=== PATIENT | male | born 1940 | race Caucasian/White ===

== ENCOUNTER 2023-09-14 19:18 | Inpatient (IN) | payer MEDICARE ==
[~2023-09-14] VITALS: Ht 180.3 cm; Wt 75.4 kg
[2023-09-14 20:07] LABS: BASOPHILS # (AUTO) 0.1 K/UL (0.0-0.2); BASOPHILS % (AUTO) 0.7 % (0.0-2.0); EOSINOPHILS # (AUTO) 0.2 K/uL (0.0-0.7); EOSINOPHILS % (AUTO) 1.5 % (0.0-7.0); HEMATOCRIT 46.9 % (36.7-47.1); HEMOGLOBIN 15.2 g/dL (12.5-16.3); LYMPHOCYTES # (AUTO) 1.4 K/uL (0.8-4.8); LYMPHOCYTES % (AUTO) 12.8 % (20.5-51.5); MEAN CORPUSCULAR HEMOGLOBIN 29.3 uug (23.8-33.4); MEAN CORPUSCULAR HGB CONC 33 g/dL (32.5-36.3); MEAN CORPUSCULAR VOLUME 90.2 fL (73.0-96.2); MONOCYTES # (AUTO) 1.2 K/uL (0.1-1.30); NEUTROPHILS # (AUTO) 8.3 K/uL (1.8-8.9); PLATELET COUNT (AUTO) 231 K/uL (152-348); RED CELL DISTRIBUTION WIDTH 14.8 % (12.1-16.2); WHITE BLOOD COUNT (AUTO) 11.2 K/uL (3.6-10.2)
[2023-09-14 20:08] LABS: CALCIUM 8.8 mg/dL (8.5-10.1); CREATININE 1.2 mg/dL (0.6-1.3); POTASSIUM 3.6 mmol/L (3.5-5.1)
[2023-09-14] MEDS ORDERED: levoFLOXacin 750MG/D5W 150 ML IV ONE (20:10)
[2023-09-14 20:14] LABS: ALBUMIN 2.9 g/dL (3.4-5.0); BILIRUBIN,DIRECT 0.2 mg/dL (0.0-0.2); BILIRUBIN,TOTAL 0.9 mg/dL (0.2-1.0); TOTAL PROTEIN, SERUM 7.1 g/dL (6.4-8.2)
[2023-09-14] MEDS ORDERED: levoFLOXacin 750 MG/D5W 150 ML PIGGYBACK IV ONE (20:15)
[2023-09-14] MEDS ORDERED: ONDANSETRON 4 MG/2 ML VIAL ONE (20:24)
[2023-09-14] MEDS ORDERED: HYDROMORPHONE 1 MG/1 ML DISP.SYRIN ONE (20:24)
[2023-09-14] MEDS ORDERED: HYDROMORPHONE 1 MG/1 ML DISP.SYRIN IV ONE (20:30)
[2023-09-14] MEDS ORDERED: ONDANSETRON 4 MG/2 ML VIAL IV ONE (20:30)
[2023-09-14] MEDS ORDERED: SWABABLE VALVE TRANSFER SET EA MC ONE (20:54)
[2023-09-14] MEDS ORDERED: IOHEXOL 350 100 ML INFUS..BTL ONE (20:54)
[2023-09-14] MEDS ORDERED: IV NORMAL SALINE 250 ML IV ONE (20:54)
[2023-09-15 01:07] VITALS: BP 149/75; TEMP 97.8
[2023-09-15] MEDS ORDERED: ONDANSETRON 4 MG/2 ML VIAL IV PRN (01:30)
[2023-09-15] MEDS ORDERED: ACETAMINOPHEN 650 MG SUPP.RECT RC PRN (01:30)
[2023-09-15] MEDS: IV D5/ 0.9% NACL 1,000 ML IV PRN ×2 (02:24→19:59)
[2023-09-15] MEDS: MORPHINE SULFATE 4 MG/1 ML DISP.SYRIN IV PRN ×3 (04:47→22:09)
[2023-09-15] MEDS ORDERED: ENALAPRILAT DIHYDRATE 1.25 MG/1 ML VIAL IV PRN (06:45)
[2023-09-15 06:48] LABS: BASOPHILS # (AUTO) 0.1 K/UL (0.0-0.2); BASOPHILS % (AUTO) 0.7 % (0.0-2.0); EOSINOPHILS # (AUTO) 0.1 K/uL (0.0-0.7); EOSINOPHILS % (AUTO) 1.1 % (0.0-7.0); HEMATOCRIT 42.2 % (36.7-47.1); LYMPHOCYTES # (AUTO) 1.4 K/uL (0.8-4.8); LYMPHOCYTES % (AUTO) 13.3 % (20.5-51.5); MEAN CORPUSCULAR HEMOGLOBIN 30.5 uug (23.8-33.4); MEAN CORPUSCULAR HGB CONC 33 g/dL (32.5-36.3); MEAN CORPUSCULAR VOLUME 91.7 fL (73.0-96.2); MONOCYTES # (AUTO) 1.2 K/uL (0.1-1.30); MONOCYTES % (AUTO) 11.2 % (0.0-11.0); NEUTROPHILS # (AUTO) 7.9 K/uL (1.8-8.9); NEUTROPHILS % (AUTO) 73.7 % (38.5-71.5); PLATELET COUNT (AUTO) 80 K/uL (152-348); RED CELL DISTRIBUTION WIDTH 14.5 % (12.1-16.2); WHITE BLOOD COUNT (AUTO) 10.7 K/uL (3.6-10.2)
[2023-09-15 07:01] LABS: DIFFERENTIAL COMMENT 1
[2023-09-15 07:10] LABS: THYROID STIMULATING HORMONE 2.884 mIU/mL (0.358-3.740)
[2023-09-15 07:19] LABS: ALANINE AMINOTRANSFERASE 21 U/L (16-63); ALBUMIN 2.8 g/dL (3.4-5.0); ALKALINE PHOSPHATASE 91 U/L (50-136); ASPARTATE AMINOTRANSFERASE 18 U/L (15-37); CALCIUM 8.7 mg/dL (8.5-10.1); CARBON DIOXIDE 28 mmol/L (21-32); CHLORIDE 103 mmol/L (98-107); CHOLESTEROL 180 mg/dL (<200); GLUCOSE 120 mg/dL (74-106); HDL CHOLESTEROL 69 mg/dL (40-60); PHOSPHOROUS 3.5 mg/dL (2.5-4.9); POTASSIUM 4.2 mmol/L (3.5-5.1); SODIUM SERUM 139 mmol/L (136-145); TOTAL PROTEIN, SERUM 7.3 g/dL (6.4-8.2); TRIGLYCERIDES 56 MG/DL (30-150)
[2023-09-15] MEDS: PANTOPRAZOLE SODIUM 40 MG VIAL IV SCH (08:30)
[2023-09-15] MEDS: NEOMY/BACITRAC/POLYMI OINT 28.35 GM TUBE TOP SCH (08:32)
[2023-09-15 08:41] LABS: UREA NITROGEN, BLOOD 14 mg/dL (7-18)
[2023-09-15 11:33] VITALS: BP 141/74; TEMP 98.5; O2SAT 94
[2023-09-15 15:53] VITALS: BP 130/68; TEMP 97.9; O2SAT 94
[2023-09-15 18:06] LABS: ABG BASE EXCESS -3.1 mmol/L; ABG HCO3 21.8 mmol/L; ABG PCO2 38.7 mmHg (35.0-45.0); ABG PH 7.368 (7.350-7.450); ABG PO2 68.1 mmHg (75.0-100.0); ABG SITE LEFT RADIAL; ABG TOTAL HEMOGLOBIN 14.8 G/dL (13.5-18.0); COHb 1.6 % (0.5-1.5); MetHb 0.2 % (0.0-1.5); O2Hb 92.8 % (94.0-97.0); VENT MODE Nasal Cannula
[2023-09-16] VITALS (10 sets, daily range): BP systolic 108–131; BP diastolic 55–64; TEMP 97.8–98.3; O2SAT 92–99
[2023-09-16] MEDS ORDERED: VANCOMYCIN 1000 MG VIAL ONE (07:00)
[2023-09-16 07:15] LABS: BASOPHILS # (AUTO) 0.1 K/UL (0.0-0.2); BASOPHILS % (AUTO) 0.6 % (0.0-2.0); EOSINOPHILS # (AUTO) 0.3 K/uL (0.0-0.7); EOSINOPHILS % (AUTO) 3.4 % (0.0-7.0); HEMATOCRIT 42.9 % (36.7-47.1); LYMPHOCYTES # (AUTO) 1.2 K/uL (0.8-4.8); MEAN CORPUSCULAR HGB CONC 33 g/dL (32.5-36.3); MONOCYTES # (AUTO) 1.1 K/uL (0.1-1.30); MONOCYTES % (AUTO) 13.1 % (0.0-11.0); NEUTROPHILS # (AUTO) 5.5 K/uL (1.8-8.9); NEUTROPHILS % (AUTO) 67.9 % (38.5-71.5); PLATELET COUNT (AUTO) 229 K/uL (152-348); RED BLOOD CELL COUNT(AUTO) 4.66 MIL/uL (4.06-5.63); RED CELL DISTRIBUTION WIDTH 14.5 % (12.1-16.2); WHITE BLOOD COUNT (AUTO) 8.1 K/uL (3.6-10.2)
[2023-09-16 07:21] LABS: CALCIUM 8.7 mg/dL (8.5-10.1); CARBON DIOXIDE 28 mmol/L (21-32); CHLORIDE 103 mmol/L (98-107); CREATININE 1.1 mg/dL (0.6-1.3); GLUCOSE 100 mg/dL (74-106); SODIUM SERUM 137 mmol/L (136-145); UREA NITROGEN, BLOOD 13 mg/dL (7-18)
[2023-09-16 07:22] LABS: DIFFERENTIAL COMMENT 1
[2023-09-16] MEDS ORDERED: TRANEXAMIC ACID 1,000 MG/10 ML VIAL ONE (08:19)
[2023-09-16] MEDS ORDERED: FENTANYL CITRATE 100 MCG/2 ML AMPUL ONE (08:19)
[2023-09-16] MEDS ORDERED: FAMOTIDINE. 20 MG/2 ML VIAL IV ONE (08:19)
[2023-09-16] MEDS ORDERED: ROCURONIUM BROMIDE 50 MG/5 ML VIAL ONE (08:19)
[2023-09-16] MEDS ORDERED: CEFAZOLIN 1 G VIAL ONE ×2 (08:30)
[2023-09-16] MEDS ORDERED: EPHEDRINE SULFATE 50 MG/ML AMPUL ONE (08:30)
[2023-09-16] MEDS ORDERED: LIDOCAINE-MPF 2% 5 ML VIAL ONE (08:30)
[2023-09-16] MEDS ORDERED: DEXAMETHASONE SOD PHOSPHATE 4 MG INJ ONE (08:30)
[2023-09-16] MEDS ORDERED: ETOMIDATE 20 MG/10 ML VIAL ONE (08:30)
[2023-09-16] MEDS ORDERED: ONDANSETRON 4 MG/2 ML VIAL ONE (08:30)
[2023-09-16] MEDS ORDERED: PHENYLEPHRINE 10 MG/1 ML VIAL ONE (08:30)
[2023-09-16] MEDS: NEOMY/BACITRAC/POLYMI OINT 28.35 GM TUBE TOP SCH (09:00)
[2023-09-16] MEDS ORDERED: ALBUTEROL SULFATE 2.5 MG/ 0.5 ML NEBU NEB ONE (09:00)
[2023-09-16] MEDS: PANTOPRAZOLE SODIUM 40 MG VIAL IV SCH (09:00)
[2023-09-16] MEDS ORDERED: BUPIVACAINE PF 0.5% 30 ML VIAL ONE (09:03)
[2023-09-16] MEDS ORDERED: ALBUTEROL SULFATE 2.5 MG/3 ML NEBU ONE (09:24)
[2023-09-16] MEDS: ALBUTEROL SULFATE 1.25 MG/3 ML NEBU NEB PRN (10:04)
[2023-09-16] MEDS ORDERED: IV D5W-0.45% NS +20 KCL 1,000 ML IV ONE (10:48)
[2023-09-16] MEDS: IV D5W-0.45% NS +20 KCL 1,000 ML IV PRN (12:28)
[2023-09-16] MEDS: CEFAZOLIN 1 G in IV DEXTROSE 5% 50 ML IV SCH (16:47)
[2023-09-16] MEDS: HYDROCODONE/APAP 10-325 MG TABLET PO PRN (22:28)
[2023-09-17] VITALS (7 sets, daily range): BP systolic 101–107; BP diastolic 50–59; TEMP 97.5–98.6; O2SAT 93–99
[2023-09-17] MEDS: CEFAZOLIN 1 G in IV DEXTROSE 5% 50 ML IV SCH (00:44)
[2023-09-17] MEDS: IV D5W-0.45% NS +20 KCL 1,000 ML IV PRN (00:44)
[2023-09-17] MEDS: MORPHINE SULFATE 4 MG/1 ML DISP.SYRIN IV PRN (04:27)
[2023-09-17 06:46] LABS: BASOPHILS % (AUTO) 0.1 % (0.0-2.0); EOSINOPHILS % (AUTO) 0.1 % (0.0-7.0); HEMATOCRIT 35.8 % (36.7-47.1); HEMOGLOBIN 11.8 g/dL (12.5-16.3); LYMPHOCYTES # (AUTO) 1.1 K/uL (0.8-4.8); LYMPHOCYTES % (AUTO) 9.1 % (20.5-51.5); MEAN CORPUSCULAR HEMOGLOBIN 29.9 uug (23.8-33.4); MEAN CORPUSCULAR HGB CONC 33 g/dL (32.5-36.3); MEAN CORPUSCULAR VOLUME 90.7 fL (73.0-96.2); MONOCYTES # (AUTO) 1.4 K/uL (0.1-1.30); MONOCYTES % (AUTO) 11.9 % (0.0-11.0); NEUTROPHILS # (AUTO) 9.1 K/uL (1.8-8.9); NEUTROPHILS % (AUTO) 78.8 % (38.5-71.5); PLATELET COUNT (AUTO) 221 K/uL (152-348); RED BLOOD CELL COUNT(AUTO) 3.95 MIL/uL (4.06-5.63); RED CELL DISTRIBUTION WIDTH 14.3 % (12.1-16.2); WHITE BLOOD COUNT (AUTO) 11.6 K/uL (3.6-10.2)
[2023-09-17 07:07] LABS: DIFFERENTIAL COMMENT 1
[2023-09-17] MEDS: PANTOPRAZOLE SODIUM 40 MG VIAL IV SCH (08:35)
[2023-09-17] MEDS: NEOMY/BACITRAC/POLYMI OINT 28.35 GM TUBE TOP SCH (08:36)
[2023-09-17 08:37] LABS: CARBON DIOXIDE 23 mmol/L (21-32); CHLORIDE 105 mmol/L (98-107); GLUCOSE 132 mg/dL (74-106); MAGNESIUM 1.9 mg/dL (1.8-2.4); PHOSPHOROUS 2.9 mg/dL (2.5-4.9); POTASSIUM 4.2 mmol/L (3.5-5.1); SODIUM SERUM 136 mmol/L (136-145); UREA NITROGEN, BLOOD 12 mg/dL (7-18)
[2023-09-17] MEDS: HYDROCODONE/APAP 10-325 MG TABLET PO PRN (09:45)
[2023-09-18] VITALS (8 sets, daily range): BP systolic 109–123; BP diastolic 53–63; TEMP 97.9–98.9; O2SAT 93–99
[2023-09-18 06:47] LABS: BASOPHILS % (AUTO) 0.5 % (0.0-2.0); EOSINOPHILS # (AUTO) 0.2 K/uL (0.0-0.7); EOSINOPHILS % (AUTO) 2.8 % (0.0-7.0); HEMATOCRIT 36.2 % (36.7-47.1); HEMOGLOBIN 11.7 g/dL (12.5-16.3); LYMPHOCYTES # (AUTO) 1.2 K/uL (0.8-4.8); MEAN CORPUSCULAR HEMOGLOBIN 29.7 uug (23.8-33.4); MEAN CORPUSCULAR HGB CONC 32 g/dL (32.5-36.3); MEAN CORPUSCULAR VOLUME 91.8 fL (73.0-96.2); MONOCYTES # (AUTO) 1.1 K/uL (0.1-1.30); MONOCYTES % (AUTO) 13.1 % (0.0-11.0); NEUTROPHILS # (AUTO) 6.1 K/uL (1.8-8.9); NEUTROPHILS % (AUTO) 69.6 % (38.5-71.5); PLATELET COUNT (AUTO) 221 K/uL (152-348); RED BLOOD CELL COUNT(AUTO) 3.94 MIL/uL (4.06-5.63); RED CELL DISTRIBUTION WIDTH 14.4 % (12.1-16.2); WHITE BLOOD COUNT (AUTO) 8.7 K/uL (3.6-10.2)
[2023-09-18 06:53] LABS: DIFFERENTIAL COMMENT 1
[2023-09-18 07:03] LABS: CALCIUM 7.5 mg/dL (8.5-10.1); CARBON DIOXIDE 27 mmol/L (21-32); CHLORIDE 103 mmol/L (98-107); CREATININE 0.9 mg/dL (0.6-1.3); GLUCOSE 113 mg/dL (74-106); MAGNESIUM 1.8 mg/dL (1.8-2.4); PHOSPHOROUS 2.2 mg/dL (2.5-4.9); POTASSIUM 3.6 mmol/L (3.5-5.1); SODIUM SERUM 137 mmol/L (136-145); UREA NITROGEN, BLOOD 13 mg/dL (7-18)
[2023-09-18] MEDS: PANTOPRAZOLE SODIUM 40 MG VIAL IV SCH (08:15)
[2023-09-18] MEDS: NEOMY/BACITRAC/POLYMI OINT 28.35 GM TUBE TOP SCH (08:16)
[2023-09-18] MEDS: HYDROCODONE/APAP 10-325 MG TABLET PO PRN (08:16)
[2023-09-18] MEDS: ALBUTEROL SULFATE 1.25 MG/3 ML NEBU NEB PRN (10:23)
[2023-09-18] MEDS: MIRALAX 17 GM POWD.PACK PO PRN (12:36)
[2023-09-18] MEDS: ENSURE ENLIVE (VAN) 240 ML LIQUID PO SCH ×2 (12:39→16:43)
[2023-09-18] MEDS ORDERED: NEUTRA PHOS PACKET PO ONE (16:00)
[2023-09-18] MEDS: DOCUSATE SODIUM 100 MG CAPSULE PO SCH (21:44)
[2023-09-19] MEDS: MORPHINE SULFATE 4 MG/1 ML DISP.SYRIN IV PRN ×2 (03:52→12:40)
[2023-09-19 04:04] VITALS: BP 129/67; TEMP 98; O2SAT 92
[2023-09-19 06:16] LABS: BASOPHILS % (AUTO) 0.4 % (0.0-2.0); EOSINOPHILS # (AUTO) 0.3 K/uL (0.0-0.7); EOSINOPHILS % (AUTO) 3.2 % (0.0-7.0); HEMATOCRIT 36.7 % (36.7-47.1); HEMOGLOBIN 11.9 g/dL (12.5-16.3); LYMPHOCYTES # (AUTO) 1.4 K/uL (0.8-4.8); LYMPHOCYTES % (AUTO) 15.4 % (20.5-51.5); MEAN CORPUSCULAR HEMOGLOBIN 29.5 uug (23.8-33.4); MEAN CORPUSCULAR HGB CONC 33 g/dL (32.5-36.3); MEAN CORPUSCULAR VOLUME 90.9 fL (73.0-96.2); MONOCYTES # (AUTO) 1.2 K/uL (0.1-1.30); MONOCYTES % (AUTO) 12.5 % (0.0-11.0); NEUTROPHILS # (AUTO) 6.3 K/uL (1.8-8.9); NEUTROPHILS % (AUTO) 68.5 % (38.5-71.5); PLATELET COUNT (AUTO) 258 K/uL (152-348); RED BLOOD CELL COUNT(AUTO) 4.04 MIL/uL (4.06-5.63); RED CELL DISTRIBUTION WIDTH 14.1 % (12.1-16.2); WHITE BLOOD COUNT (AUTO) 9.3 K/uL (3.6-10.2)
[2023-09-19] MEDS: PANTOPRAZOLE SODIUM 40 MG TABLET.DR PO SCH (06:18)
[2023-09-19 06:26] LABS: DIFFERENTIAL COMMENT 1
[2023-09-19 06:36] LABS: CARBON DIOXIDE 26 mmol/L (21-32); CHLORIDE 102 mmol/L (98-107); CREATININE 0.9 mg/dL (0.6-1.3); GLUCOSE 98 mg/dL (74-106); MAGNESIUM 1.9 mg/dL (1.8-2.4); POTASSIUM 3.9 mmol/L (3.5-5.1); SODIUM SERUM 137 mmol/L (136-145); UREA NITROGEN, BLOOD 12 mg/dL (7-18)
[2023-09-19 07:54] VITALS: TEMP 97.6
[2023-09-19] MEDS: DOCUSATE SODIUM 100 MG CAPSULE PO SCH ×2 (09:02→20:31)
[2023-09-19] MEDS: NEOMY/BACITRAC/POLYMI OINT 28.35 GM TUBE TOP SCH (09:07)
[2023-09-19] MEDS: ENSURE ENLIVE (VAN) 240 ML LIQUID PO SCH ×3 (09:08→16:09)
[2023-09-19 15:43] VITALS: TEMP 97.2
[2023-09-19 16:00] VITALS: BP 114/61; TEMP 97.2; O2SAT 72
[2023-09-19 20:00] VITALS: BP 116/68; TEMP 97; O2SAT 72
[2023-09-19] MEDS: HYDROCODONE/APAP 10-325 MG TABLET PO PRN (20:32)
[2023-09-19 22:11] VITALS: O2SAT 96
[2023-09-20] MEDS: HYDROCODONE/APAP 10-325 MG TABLET PO PRN (04:41)
[2023-09-20 04:42] VITALS: BP 109/70; TEMP 98; O2SAT 72
[2023-09-20] MEDS: PANTOPRAZOLE SODIUM 40 MG TABLET.DR PO SCH (06:43)
[2023-09-20] MEDS: DOCUSATE SODIUM 100 MG CAPSULE PO SCH ×2 (08:41→20:38)
[2023-09-20] MEDS: NEOMY/BACITRAC/POLYMI OINT 28.35 GM TUBE TOP SCH (08:42)
[2023-09-20] MEDS: ENSURE ENLIVE (VAN) 240 ML LIQUID PO SCH ×3 (08:42→16:56)
[2023-09-20] MEDS: MIRALAX 17 GM POWD.PACK PO PRN (08:55)
[2023-09-20] MEDS: MORPHINE SULFATE 4 MG/1 ML DISP.SYRIN IV PRN (08:56)
[2023-09-20 12:00] VITALS: BP 113/64; TEMP 98; O2SAT 95
[2023-09-20 15:32] VITALS: BP 124/58; TEMP 97.5; O2SAT 95
[2023-09-20 18:05] VITALS: O2SAT 99
[2023-09-20] MEDS: MAGNESIUM HYDROXIDE 30 ML LIQUID UDC PO PRN (18:26)
[2023-09-20 20:16] VITALS: BP 120/63; TEMP 97.6; O2SAT 95
[2023-09-20 20:55] VITALS: O2SAT 98
[2023-09-21 04:05] VITALS: BP 112/62; TEMP 98.1; O2SAT 95
[2023-09-21] MEDS: PANTOPRAZOLE SODIUM 40 MG TABLET.DR PO SCH (06:07)
[2023-09-21] MEDS: HYDROCODONE/APAP 10-325 MG TABLET PO PRN (08:24)
[2023-09-21] MEDS: MIRALAX 17 GM POWD.PACK PO PRN (08:24)
[2023-09-21] MEDS: ENSURE ENLIVE (VAN) 240 ML LIQUID PO SCH ×3 (08:24→16:25)
[2023-09-21] MEDS: DOCUSATE SODIUM 100 MG CAPSULE PO SCH ×2 (08:24→20:27)
[2023-09-21] MEDS: NEOMY/BACITRAC/POLYMI OINT 28.35 GM TUBE TOP SCH (08:25)
[2023-09-21 11:40] VITALS: BP 127/70; TEMP 97.6; O2SAT 96
[2023-09-21 16:21] VITALS: O2SAT 99
[2023-09-21 16:45] VITALS: BP 121/51; TEMP 97.5; O2SAT 96
[2023-09-21] MEDS: MAGNESIUM HYDROXIDE 30 ML LIQUID UDC PO PRN (19:01)
[2023-09-21 20:00] VITALS: BP 124/60; TEMP 97.8; O2SAT 93
[2023-09-22] MEDS: GUAIFENESIN/CODEINE 5 ML LIQUID UDC PO PRN (00:54)
[2023-09-22 04:00] VITALS: BP 104/49; TEMP 98.8; O2SAT 91
[2023-09-22 05:35] VITALS: O2SAT 99
[2023-09-22] MEDS: PANTOPRAZOLE SODIUM 40 MG TABLET.DR PO SCH (06:42)
[2023-09-22 07:57] LABS: CALCIUM 8.7 mg/dL (8.5-10.1); CARBON DIOXIDE 28 mmol/L (21-32); CHLORIDE 99 mmol/L (98-107); CREATININE 0.9 mg/dL (0.6-1.3); GLUCOSE 108 mg/dL (74-106); MAGNESIUM 2.5 mg/dL (1.8-2.4); PHOSPHOROUS 2.6 mg/dL (2.5-4.9); POTASSIUM 4.1 mmol/L (3.5-5.1); SODIUM SERUM 135 mmol/L (136-145); UREA NITROGEN, BLOOD 16 mg/dL (7-18)
[2023-09-22 08:01] LABS: BASOPHILS # (AUTO) 0.1 K/UL (0.0-0.2); BASOPHILS % (AUTO) 0.6 % (0.0-2.0); EOSINOPHILS # (AUTO) 0.2 K/uL (0.0-0.7); EOSINOPHILS % (AUTO) 1.9 % (0.0-7.0); HEMATOCRIT 35.8 % (36.7-47.1); HEMOGLOBIN 12.1 g/dL (12.5-16.3); LYMPHOCYTES # (AUTO) 1.5 K/uL (0.8-4.8); LYMPHOCYTES % (AUTO) 15.3 % (20.5-51.5); MEAN CORPUSCULAR HEMOGLOBIN 30.2 uug (23.8-33.4); MEAN CORPUSCULAR HGB CONC 34 g/dL (32.5-36.3); MEAN CORPUSCULAR VOLUME 89.6 fL (73.0-96.2); MONOCYTES # (AUTO) 1.1 K/uL (0.1-1.30); MONOCYTES % (AUTO) 10.7 % (0.0-11.0); NEUTROPHILS # (AUTO) 7.1 K/uL (1.8-8.9); NEUTROPHILS % (AUTO) 71.5 % (38.5-71.5); PLATELET COUNT (AUTO) 327 K/uL (152-348); RED BLOOD CELL COUNT(AUTO) 3.99 MIL/uL (4.06-5.63); WHITE BLOOD COUNT (AUTO) 9.9 K/uL (3.6-10.2)
[2023-09-22 08:07] LABS: DIFFERENTIAL COMMENT 1
[2023-09-22] MEDS: DOCUSATE SODIUM 100 MG CAPSULE PO SCH ×2 (08:53→20:24)
[2023-09-22] MEDS: HYDROCODONE/APAP 10-325 MG TABLET PO PRN ×2 (08:54→16:55)
[2023-09-22] MEDS: NEOMY/BACITRAC/POLYMI OINT 28.35 GM TUBE TOP SCH (08:54)
[2023-09-22] MEDS: ENSURE ENLIVE (VAN) 240 ML LIQUID PO SCH ×3 (08:59→16:29)
[2023-09-22] MEDS: ENOXAPARIN SODIUM 30 MG/0.3 ML DISP.SYRIN SUBCUT SCH ×2 (09:00→20:27)
[2023-09-22 09:55] VITALS: O2SAT 99
[2023-09-22 11:12] VITALS: BP 100/51; TEMP 97.8; O2SAT 90
[2023-09-22 15:20] VITALS: BP 101/58; TEMP 97.6; O2SAT 91
[2023-09-23 04:34] VITALS: O2SAT 99
[2023-09-23 05:43] VITALS: BP 112/56; TEMP 98.4; O2SAT 95
[2023-09-23] MEDS: PANTOPRAZOLE SODIUM 40 MG TABLET.DR PO SCH (06:42)
[2023-09-23] MEDS: HYDROCODONE/APAP 10-325 MG TABLET PO PRN ×2 (08:16→18:00)
[2023-09-23] MEDS: DOCUSATE SODIUM 100 MG CAPSULE PO SCH ×2 (08:16→21:36)
[2023-09-23] MEDS: ENSURE ENLIVE (VAN) 240 ML LIQUID PO SCH ×3 (08:17→18:00)
[2023-09-23] MEDS: NEOMY/BACITRAC/POLYMI OINT 28.35 GM TUBE TOP SCH (08:17)
[2023-09-23] MEDS: ENOXAPARIN SODIUM 30 MG/0.3 ML DISP.SYRIN SUBCUT SCH ×2 (08:24→21:37)
[2023-09-23 11:06] VITALS: BP 106/51; TEMP 97.6; O2SAT 92
[2023-09-23 15:07] VITALS: BP 118/65; TEMP 97.6; O2SAT 94
[2023-09-23] MEDS: MIRALAX 17 GM POWD.PACK PO PRN (17:59)
[2023-09-23 20:00] VITALS: BP 119/68; TEMP 98; O2SAT 90
[2023-09-23 20:38] VITALS: O2SAT 96
[2023-09-24] VITALS (7 sets, daily range): BP systolic 108–124; BP diastolic 55–67; TEMP 97.2–98.2; O2SAT 93–96
[2023-09-24] MEDS: PANTOPRAZOLE SODIUM 40 MG TABLET.DR PO SCH (06:11)
[2023-09-24] MEDS: ENOXAPARIN SODIUM 30 MG/0.3 ML DISP.SYRIN SUBCUT SCH ×2 (08:42→21:04)
[2023-09-24] MEDS: NEOMY/BACITRAC/POLYMI OINT 28.35 GM TUBE TOP SCH (08:43)
[2023-09-24] MEDS: ENSURE ENLIVE (VAN) 240 ML LIQUID PO SCH ×3 (08:43→17:18)
[2023-09-24] MEDS: DOCUSATE SODIUM 100 MG CAPSULE PO SCH ×2 (08:43→21:02)
[2023-09-24] MEDS: HYDROCODONE/APAP 10-325 MG TABLET PO PRN (10:58)
[2023-09-24] MEDS: GUAIFENESIN/CODEINE 5 ML LIQUID UDC PO PRN (10:59)
[2023-09-25 04:00] VITALS: BP 114/52; TEMP 97.9
[2023-09-25] MEDS: PANTOPRAZOLE SODIUM 40 MG TABLET.DR PO SCH (06:19)
[2023-09-25 08:05] VITALS: BP 116/56; TEMP 97.9; O2SAT 93
[2023-09-25] MEDS: DOCUSATE SODIUM 100 MG CAPSULE PO SCH ×2 (08:30→20:11)
[2023-09-25] MEDS: ENOXAPARIN SODIUM 30 MG/0.3 ML DISP.SYRIN SUBCUT SCH ×2 (08:31→20:11)
[2023-09-25] MEDS: ENSURE ENLIVE (VAN) 240 ML LIQUID PO SCH ×3 (08:34→17:21)
[2023-09-25] MEDS: NEOMY/BACITRAC/POLYMI OINT 28.35 GM TUBE TOP SCH (08:34)
[2023-09-25 11:01] VITALS: BP 113/54; TEMP 98.6; O2SAT 91
[2023-09-25 15:03] VITALS: BP 115/60; TEMP 98.7; O2SAT 92
[2023-09-25] MEDS: HYDROCODONE/APAP 10-325 MG TABLET PO PRN (20:20)
[2023-09-25 20:26] VITALS: BP 129/63; TEMP 97.9; O2SAT 93
[2023-09-26] VITALS (7 sets, daily range): BP systolic 102–121; BP diastolic 52–91; TEMP 96.7–98.3; O2SAT 92–98
[2023-09-26] MEDS: PANTOPRAZOLE SODIUM 40 MG TABLET.DR PO SCH (06:08)
[2023-09-26] MEDS: DOCUSATE SODIUM 100 MG CAPSULE PO SCH ×2 (08:49→20:14)
[2023-09-26] MEDS: NEOMY/BACITRAC/POLYMI OINT 28.35 GM TUBE TOP SCH (08:51)
[2023-09-26] MEDS: ENOXAPARIN SODIUM 30 MG/0.3 ML DISP.SYRIN SUBCUT SCH ×2 (08:53→20:15)
[2023-09-26] MEDS: ENSURE ENLIVE (VAN) 240 ML LIQUID PO SCH ×3 (08:54→17:51)
[2023-09-27 04:02] VITALS: BP 116/59; TEMP 97.8; O2SAT 92
[2023-09-27] MEDS: PANTOPRAZOLE SODIUM 40 MG TABLET.DR PO SCH (06:34)
[2023-09-27] MEDS: DOCUSATE SODIUM 100 MG CAPSULE PO SCH ×2 (08:37→21:14)
[2023-09-27] MEDS: NEOMY/BACITRAC/POLYMI OINT 28.35 GM TUBE TOP SCH (08:37)
[2023-09-27] MEDS: ENSURE ENLIVE (VAN) 240 ML LIQUID PO SCH ×3 (08:38→17:35)
[2023-09-27] MEDS: ENOXAPARIN SODIUM 30 MG/0.3 ML DISP.SYRIN SUBCUT SCH ×2 (08:42→21:15)
[2023-09-27 11:20] VITALS: BP 100/54; TEMP 98.4; O2SAT 94
[2023-09-27 15:56] VITALS: BP 110/59; TEMP 97.7; O2SAT 94
[2023-09-27 20:00] VITALS: BP 124/56; TEMP 98.3; O2SAT 94
[2023-09-27] MEDS: GUAIFENESIN/CODEINE 5 ML LIQUID UDC PO PRN (21:24)
[2023-09-28 04:00] VITALS: BP 117/66; TEMP 97.7; O2SAT 95
[2023-09-28] MEDS: PANTOPRAZOLE SODIUM 40 MG TABLET.DR PO SCH (06:23)
[2023-09-28] MEDS: NEOMY/BACITRAC/POLYMI OINT 28.35 GM TUBE TOP SCH (08:27)
[2023-09-28] MEDS: DOCUSATE SODIUM 100 MG CAPSULE PO SCH ×2 (08:30→20:32)
[2023-09-28] MEDS: ENOXAPARIN SODIUM 30 MG/0.3 ML DISP.SYRIN SUBCUT SCH ×2 (08:31→20:32)
[2023-09-28] MEDS: ENSURE ENLIVE (VAN) 240 ML LIQUID PO SCH ×2 (08:32→12:35)
[2023-09-28 11:30] VITALS: BP 113/59; TEMP 97.6; O2SAT 95
[2023-09-28 12:58] VITALS: O2SAT 95
[2023-09-28 15:43] VITALS: BP 102/55; TEMP 97.7; O2SAT 96
[2023-09-28 20:00] VITALS: BP 114/54; TEMP 97.4; O2SAT 95
[2023-09-28] MEDS: TEMAZEPAM 15 MG CAPSULE PO PRN (22:03)
[2023-09-29] VITALS (7 sets, daily range): BP systolic 101–128; BP diastolic 55–65; TEMP 97.3–97.7; O2SAT 88–96
[2023-09-29] MEDS: PANTOPRAZOLE SODIUM 40 MG TABLET.DR PO SCH (06:19)
[2023-09-29] MEDS: ENOXAPARIN SODIUM 30 MG/0.3 ML DISP.SYRIN SUBCUT SCH ×2 (08:39→20:27)
[2023-09-29] MEDS: DOCUSATE SODIUM 100 MG CAPSULE PO SCH ×2 (08:39→20:22)
[2023-09-29] MEDS: NEOMY/BACITRAC/POLYMI OINT 28.35 GM TUBE TOP SCH (08:46)
[2023-09-29] MEDS: ENSURE ENLIVE (VAN) 240 ML LIQUID PO SCH (08:47)
[2023-09-29] MEDS: HYDROCODONE/APAP 10-325 MG TABLET PO PRN (13:12)
[2023-09-29] MEDS: TEMAZEPAM 15 MG CAPSULE PO PRN (22:02)
[2023-09-30 04:10] VITALS: BP 99/54; TEMP 97.4; O2SAT 93
[2023-09-30] MEDS: PANTOPRAZOLE SODIUM 40 MG TABLET.DR PO SCH (06:20)
[2023-09-30 07:00] VITALS: O2SAT 93
[2023-09-30 07:56] VITALS: BP 112/64; TEMP 97.5; O2SAT 93
[2023-09-30] MEDS: ENOXAPARIN SODIUM 30 MG/0.3 ML DISP.SYRIN SUBCUT SCH (08:44)
[2023-09-30] MEDS: DOCUSATE SODIUM 100 MG CAPSULE PO SCH (08:44)
[2023-09-30] MEDS: NEOMY/BACITRAC/POLYMI OINT 28.35 GM TUBE TOP SCH (08:45)
[2023-09-30] MEDS: ENSURE ENLIVE (VAN) 240 ML LIQUID PO SCH (08:47)
[2023-09-30 11:09] VITALS: BP 112/57; TEMP 97.6; O2SAT 93
[2023-09-30 15:57] VITALS: BP 113/65; TEMP 97.4; O2SAT 95
[2023-09-30] MEDS ORDERED: HYDR-3972 PO (18:20)
[2023-09-30] MEDS ORDERED: PANT40TA2 PO (18:20)
[2023-09-30] MEDS ORDERED: ENOX40DI SUBCUT (18:20)
[2023-09-30] MEDS ORDERED: ALBU18HF2 INH (18:20)
== END 2023-09-30 19:30 | disposition home health service (06) | DRG 521 ==
LOC: ER 19:21 → TELE3 22:45 → MEDSURG3 09-17 11:15
PROVIDERS: ADMIT Student in an Organized Health Care Education/Training Program; ATTEND Nurse Practitioner Acute Care
PROC: 0SRS0JZ Replacement of Left Hip Joint, Femoral Surface with Synthetic Substitute, Open Approach (ICD-10-PCS; principal; 2023-09-16)
DX: S72.002A Fracture of unspecified part of neck of left femur, initial encounter for closed fracture (principal); J96.01 Acute respiratory failure with hypoxia; J98.11 Atelectasis; W18.30XA Fall on same level, unspecified, initial encounter; J43.9 Emphysema, unspecified; D69.6 Thrombocytopenia, unspecified; I10 Essential (primary) hypertension; Z87.01 Personal history of pneumonia (recurrent); Z20.822 Contact with and (suspected) exposure to COVID-19; J44.9 Chronic obstructive pulmonary disease, unspecified; R91.1 Solitary pulmonary nodule; Y93.9 Activity, unspecified; Y92.009 Unspecified place in unspecified non-institutional (private) residence as the place of occurrence of the external cause; E04.1 Nontoxic single thyroid nodule; K40.90 Unilateral inguinal hernia, without obstruction or gangrene, not specified as recurrent; R49.0 Dysphonia; Z87.891 Personal history of nicotine dependence; Z86.11 Personal history of tuberculosis
CPT/HCPCS: 36415; 36600; 71045; 71275; 73501; 73502; 82803; 83605; 83735; 84100; 84443; 84484; 85025; 87040; 93005; 93307; 94640; A4606; A4649; A4663; A6209; C9113; G0378; J0690; J1100; J1170; J1650; J1956; J2270; J2405; J3010; J3370; J3490; J7040; J7042; Q9967